=== PATIENT | male | born 1955 | race Caucasian/White ===

== ENCOUNTER 2022-07-24 19:52 | Inpatient (IN) | payer MEDICARE, OTHER ==
[~2022-07-24] VITALS: Ht 172.7 cm; Wt 68.0 kg
[2022-07-24 20:27] LABS: HEMOGLOBIN 12.9 gm/dl (14.0-17.5); RED BLOOD COUNT 3.94 M/UL (4.20-5.50); WHITE BLOOD COUNT 6.9 K/UL (4.5-11.0)
[2022-07-24 20:54] LABS: BUN/CREATININE RATIO 14 (0-10)
[2022-07-25 05:52] LABS: HEMOGLOBIN 12.2 gm/dl (14.0-17.5); RED BLOOD COUNT 3.73 M/UL (4.20-5.50); WHITE BLOOD COUNT 6.3 K/UL (4.5-11.0)
[2022-07-25 06:03] LABS: BUN/CREATININE RATIO 16 (0-10)
[2022-07-25] MEDS ORDERED: SYMBICORT 16010.2 GM INH (10:34)
[2022-07-25] MEDS ORDERED: PROVENTIL HFA6.7 GM PO (10:35)
[2022-07-25] MEDS ORDERED: ALBUTEROL2.5 MG/3 M NEB (10:35)
[2022-07-25] MEDS ORDERED: PROZAC 20 MG CA20 MG PO (10:36)
[2022-07-25] MEDS ORDERED: GABAPENTIN800 MG PO (10:36)
[2022-07-25] MEDS ORDERED: ATORVASTATIN CA40 MG PO (10:36)
[2022-07-25] MEDS ORDERED: RANEXA500 MG PO (10:37)
[2022-07-25] MEDS ORDERED: HYDROCODON-ACE1 EAC6 PO (10:37)
[2022-07-25] MEDS ORDERED: IBUPROFEN800 MG PO (10:38)
[2022-07-25] MEDS ORDERED: NITROSTAT0.4 MG SL (10:38)
[2022-07-25] MEDS ORDERED: DEXILANT60 MG PO (10:38)
[2022-07-25] MEDS ORDERED: ISOSORBIDE MONO30 MG PO (10:39)
[2022-07-25] MEDS ORDERED: CARVEDILOL6.25 MG PO (11:10)
[2022-07-25] MEDS ORDERED: ZOFRAN 4 MG TAB4 MG PO (11:11)
[2022-07-25] MEDS ORDERED: DAILY VITE1 EACH PO (11:11)
[2022-07-25] MEDS ORDERED: NASAL DECONGEST10 MG PO (11:11)
[2022-07-26 05:04] LABS: HEMOGLOBIN 13.8 gm/dl (14.0-17.5); WHITE BLOOD COUNT 7.6 K/UL (4.5-11.0)
[2022-07-26 05:06] LABS: RED BLOOD COUNT 4.22 M/UL (4.20-5.50)
[2022-07-26 05:31] LABS: BUN/CREATININE RATIO 18 (0-10)
[2022-07-26] MEDS ORDERED: LOPRESSOR 25 MG25 MG PO (13:55)
[2022-07-26] MEDS ORDERED: OMNICEF 300 MG300 MG PO (13:55)
[2022-07-26] MEDS ORDERED: COZAAR 25MG TAB25 MG PO (13:55)
== END 2022-07-26 14:10 | disposition home or self-care (01) | DRG 281 ==
LOC: ER1 19:52 → CDU 21:23 → CCU 07-25 09:32
PROVIDERS: Emergency Medicine; Internal Medicine; ADMIT Family Medicine
PROC: 4A023N7 Measurement of Cardiac Sampling and Pressure, Left Heart, Percutaneous Approach (ICD-10-PCS; principal; 2022-07-25)
PROC: B2111ZZ Fluoroscopy of Multiple Coronary Arteries using Low Osmolar Contrast (ICD-10-PCS; 2022-07-25)
PROC: B24BZZZ Ultrasonography of Heart with Aorta (ICD-10-PCS; 2022-07-26)
DX: I25.110 Atherosclerotic heart disease of native coronary artery with unstable angina pectoris (principal); I21.3 ST elevation (STEMI) myocardial infarction of unspecified site; I16.1 Hypertensive emergency; J44.9 Chronic obstructive pulmonary disease, unspecified; I25.10 Atherosclerotic heart disease of native coronary artery without angina pectoris; F17.210 Nicotine dependence, cigarettes, uncomplicated; E78.00 Pure hypercholesterolemia, unspecified; F32.A Depression, unspecified; K21.9 Gastro-esophageal reflux disease without esophagitis; E78.5 Hyperlipidemia, unspecified; J31.0 Chronic rhinitis; I08.3 Combined rheumatic disorders of mitral, aortic and tricuspid valves; G89.29 Other chronic pain; M54.9 Dorsalgia, unspecified; Z86.73 Personal history of transient ischemic attack (TIA), and cerebral infarction without residual deficits; I25.2 Old myocardial infarction; Z95.5 Presence of coronary angioplasty implant and graft; Z90.49 Acquired absence of other specified parts of digestive tract; Z98.890 Other specified postprocedural states; Z82.0 Family history of epilepsy and other diseases of the nervous system; Z82.49 Family history of ischemic heart disease and other diseases of the circulatory system; Z80.0 Family history of malignant neoplasm of digestive organs; Z71.6 Tobacco abuse counseling; Z99.81 Dependence on supplemental oxygen
CPT/HCPCS: ECHO; 36415; 70450; 71045; 71275; 80048; 80053; 82550; 82553; 83735; 83880; 84484; 85025; 85610; 85730; 93005; 93306; 94640; 94664; 94760; 96374; 96375; 96376; 99152; 99285; C1769; C1887; C1894; J0692; J1644; J1940; J2250; J2270; J2405; J3010; Q9967